=== PATIENT | female | born 1965 | race Caucasian/White ===

== ENCOUNTER → 2017-07-22 | Outpatient (CLI) | payer OTHER | END | disposition home or self-care (01) | LOC: CFH 11:48 | PROVIDERS: ATTEND Obstetrics & Gynecology | DX: Z12.31 Encounter for screening mammogram for malignant neoplasm of breast (principal) | CPT/HCPCS: 77063; 77067 ==

== ENCOUNTER → 2018-05-30 | Outpatient (CLI) | payer OTHER ==
[~2018-05-30] MED LIST: ATOR20TA37 PO; CHOL100012 PO; IBUP100T6 PO; INSU100I17 SQ; INSU300I3 SL; LEVO137T2 PO; LISI-170 PO; OMEG1CAP23 PO; [UNRECOGNIZED DRUG - CODE] PO
[2018-05-30 11:03] LABS: BASOPHILS # (AUTO) 0.01 x10^3/uL (0-0.1); BASOPHILS % (AUTO) 0 % (0-1); EOSINOPHILS # (AUTO) 0.16 x10^3/uL (0-0.4); EOSINOPHILS % (AUTO) 1 % (1-7); LYMPHOCYTES # (AUTO) 2.13 x10^3/uL (1-3.4); LYMPHOCYTES % (AUTO) 16 % (22-44); MD NO; MEAN CORPUSCULAR HEMOGLOBIN 30.7 pg (27.0-34.8); MEAN CORPUSCULAR HGB CONC 33.7 g/dL (32.4-35.8); MEAN CORPUSCULAR VOLUME 91.1 fL (80-100); MEAN PLATELET VOLUME 7.9 fL (7.4-10.4); MONOCYTES # (AUTO) 0.51 x10^3/uL (0.2-0.8); MONOCYTES % (AUTO) 4 % (2-9); NEUTROPHILS # (AUTO) 10.72 x10^3/uL (1.8-6.8); NEUTROPHILS % (AUTO) 79 % (42-75); PLATELET COUNT 401 x10^3/uL (130-400); RED BLOOD COUNT 4.35 x10^6/uL (3.82-5.3)
[2018-05-30 11:12] LABS: CULTURE INDICATED? YES; MICROSCOPIC INDICATED
[2018-05-30 11:14] LABS: ALBUMIN 3.3 g/dL (3.4-5.0); ANION GAP 7 mmol/L (5-15); CHLORIDE 109 mmol/L (98-107)
[2018-05-30 11:20] LABS: ALANINE AMINOTRANSFERASE 13 U/L (12-78); ALKALINE PHOSPHATASE 44 U/L (45-117); BILIRUBIN,TOTAL 0.3 mg/dL (0.2-1.0); CREATININE 0.85 mg/dL (0.55-1.02)
== END | disposition home or self-care (01) ==
LOC: STAR 09:59
PROVIDERS: ATTEND Obstetrics & Gynecology
DX: Z01.818 Encounter for other preprocedural examination (principal); N94.6 Dysmenorrhea, unspecified; N85.7 Hematometra; M48.02 Spinal stenosis, cervical region
CPT/HCPCS: 36415; 71046; 80053; 81001; 84702; 85025; 87086; 93005

== ENCOUNTER 2018-06-03 09:25 | Inpatient (IN) | payer OTHER ==
[~2018-06-03] VITALS: Ht 160 cm; Wt 82.0 kg
[2018-06-03] MEDS ORDERED: LACTATED RINGERS 1,000 ML IV SCH (09:57)
[2018-06-03] MEDS ORDERED: ACETAMINOPHEN 500 MG TABLET PO ONE (10:00)
[2018-06-03] MEDS ORDERED: GABAPENTIN 300 MG CAPSULE PO ONE (10:00)
[2018-06-03 10:22] VITALS: BP 151/88
[2018-06-03] MEDS ORDERED: FENTANYL PF 250 MCG/5ML ONE (11:18)
[2018-06-03] MEDS ORDERED: LABETALOL 5MG/ML, 20ML IV PRN (11:30)
[2018-06-03] MEDS ORDERED: DIPHENHYDRAMINE 50 MG/ML, 1ML IVPush PRN (11:30)
[2018-06-03] MEDS ORDERED: PROCHLORPERAZINE 5 MG/ML, 2ML IV PRN (11:30)
[2018-06-03] MEDS ORDERED: HALOPERIDOL 5 MG/ML IV PRN (11:30)
[2018-06-03] MEDS ORDERED: MEPERIDINE/PF 25MG/0.5ML IVPush PRN (11:30)
[2018-06-03] MEDS ORDERED: hydrALAzine 20 MG/ML, 1ML IV PRN (11:30)
[2018-06-03] MEDS ORDERED: METOPROLOL 1 MG/ML, 5ML IV PRN (11:30)
[2018-06-03] MEDS ORDERED: PROMETHAZINE 25 MG/ML, 1ML IV PRN (11:30)
[2018-06-03] MEDS ORDERED: OXYcodone 5 MG/5 ML ORAL.SOL UDC PO PRN (11:30)
[2018-06-03] MEDS ORDERED: EPINEPHRINE 1 MG/ML, 1ML ONE (12:07)
[2018-06-03] MEDS ORDERED: BUPIVACAINE/PF 0.25% ONE (12:07)
[2018-06-03] MEDS ORDERED: FLUORESCEIN SODIUM 500 MG/5 ML ONE (12:07)
[2018-06-03] MEDS ORDERED: SUCCINYLCHOLINE 20 MG/ML, 10ML ONE (13:52)
[2018-06-03] MEDS ORDERED: ONDANSETRON 2MG/ML, 2ML ONE (13:52)
[2018-06-03] MEDS ORDERED: CEFAZOLIN 1,000 MG ONE (13:52)
[2018-06-03] MEDS ORDERED: NEOSTIGMINE 1 MG/ML, 10ML ONE (13:52)
[2018-06-03] MEDS ORDERED: PROPOFOL 10 MG/ML, 20ML ONE (13:52)
[2018-06-03] MEDS ORDERED: ROCURONIUM 10MG/ML,5ML ONE (13:52)
[2018-06-03] MEDS ORDERED: GLYCOPYRROLATE 0.2MG/1ML, 5ML ONE (13:52)
[2018-06-03] MEDS ORDERED: FENTANYL PF 100 MCG/2ML ONE ×2 (14:38→15:12)
[2018-06-03] MEDS ORDERED: OXYcodone 5 MG/5 ML ORAL.SOL UDC ONE (15:12)
[2018-06-03] MEDS: FENTANYL PF 100 MCG/2ML IV PRN ×3 (15:18→15:48)
[2018-06-03] MEDS ORDERED: HYDROmorphone 1 MG/ML, 1ML ONE ×2 (15:31→15:51)
[2018-06-03] MEDS: HYDROmorphone 2 MG/ML, 1ML IVPush PRN ×5 (15:33→16:01)
[2018-06-03] MEDS ORDERED: PROCHLORPERAZINE 5 MG/ML, 2ML ONE (15:35)
[2018-06-03] MEDS: NOVOLOG MIX MC SCH (17:00)
[2018-06-03] MEDS: LACTATED RINGERS 1,000 ML IV SCH (17:00)
[2018-06-03 18:51] VITALS: BP 126/76
[2018-06-03] MEDS: HYDROmorphone 2 MG/ML, 1ML IV PRN ×2 (19:51→23:09)
[2018-06-03] MEDS: ATORVASTATIN 20 MG TABLET PO SCH (19:52)
[2018-06-03] MEDS: IBUPROFEN 600 MG TABLET PO SCH (19:52)
[2018-06-03] MEDS ORDERED: KETOROLAC 30 MG/1 ML IV PRN (20:00)
[2018-06-03] MEDS ORDERED: ONDANSETRON 2MG/ML, 2ML IV PRN (20:00)
[2018-06-03] MEDS: OXYcodone/APAP 5/325MG TABLET PO PRN (20:55)
[2018-06-03] MEDS: SODIUM CHLORIDE FLUSH 10ML SYR IVF SCH (23:10)
[2018-06-04] MEDS: NOVOLOG MIX MC SCH ×3 (01:00→16:46)
[2018-06-04] MEDS: LACTATED RINGERS 1,000 ML IV SCH ×4 (01:00→20:08)
[2018-06-04 01:34] VITALS: BP 109/68
[2018-06-04] MEDS: OXYcodone/APAP 5/325MG TABLET PO PRN ×5 (01:56→21:56)
[2018-06-04] MEDS: IBUPROFEN 600 MG TABLET PO SCH ×4 (05:34→20:08)
[2018-06-04] MEDS: LEVOTHYROXINE 137 MCG TABLET PO SCH (05:34)
[2018-06-04 06:43] VITALS: BP 90/55
[2018-06-04] MEDS: LISINOPRIL 20 MG TABLET PO SCH (08:03)
[2018-06-04] MEDS: SODIUM CHLORIDE FLUSH 10ML SYR IVF SCH ×2 (08:03→20:08)
[2018-06-04 12:44] VITALS: BP 104/54
[2018-06-04 19:35] VITALS: BP 100/50
[2018-06-04] MEDS: ATORVASTATIN 20 MG TABLET PO SCH (20:08)
[2018-06-05] MEDS: NOVOLOG MIX MC SCH ×2 (01:00→09:00)
[2018-06-05 03:05] VITALS: BP 106/62
[2018-06-05] MEDS: IBUPROFEN 600 MG TABLET PO SCH (05:26)
[2018-06-05] MEDS: LEVOTHYROXINE 137 MCG TABLET PO SCH (05:26)
[2018-06-05 06:36] VITALS: BP 116/71
[2018-06-05] MEDS: LISINOPRIL 20 MG TABLET PO SCH (08:20)
[2018-06-05] MEDS: LACTATED RINGERS 1,000 ML IV SCH (09:00)
[2018-06-05] MEDS: SODIUM CHLORIDE FLUSH 10ML SYR IVF SCH (09:00)
[2018-06-05] MEDS ORDERED: OXYC-302 PO (09:32)
== END 2018-06-05 09:44 | disposition home or self-care (01) | DRG 742 ==
LOC: OUT 09:25 → 4NOR 16:31 → OUT 16:36 → 4NOR 16:36 → DCLOUNGE 06-05 09:32
PROVIDERS: ADMIT Obstetrics & Gynecology; ATTEND Obstetrics & Gynecology
PROC: 0UT10ZZ Resection of Left Ovary, Open Approach (ICD-10-PCS; 2018-06-03)
PROC: 0UT90ZZ Resection of Uterus, Open Approach (ICD-10-PCS; 2018-06-03)
PROC: 0UJD4ZZ Inspection of Uterus and Cervix, Percutaneous Endoscopic Approach (ICD-10-PCS; 2018-06-03)
PROC: 0DNU0ZZ Release Omentum, Open Approach (ICD-10-PCS; 2018-06-03)
PROC: 0UT70ZZ Resection of Bilateral Fallopian Tubes, Open Approach (ICD-10-PCS; principal; 2018-06-03 11:30)
DX: N88.2 Stricture and stenosis of cervix uteri (principal); R71.0 Precipitous drop in hematocrit; E44.1 Mild protein-calorie malnutrition; N83.6 Hematosalpinx; N73.6 Female pelvic peritoneal adhesions (postinfective); E10.9 Type 1 diabetes mellitus without complications; G89.29 Other chronic pain; I10 Essential (primary) hypertension; E03.9 Hypothyroidism, unspecified; E78.5 Hyperlipidemia, unspecified; N94.6 Dysmenorrhea, unspecified; Z90.49 Acquired absence of other specified parts of digestive tract; Z82.49 Family history of ischemic heart disease and other diseases of the circulatory system; Z53.31 Laparoscopic surgical procedure converted to open procedure
CPT/HCPCS: 36415; J3490; 82962; 85014; 85018; 86850; 86900; 88307; G0378; J0171; J0690; J1170; J2405; J2704; J2710; J3010; J0330; J0780; J7120

== ENCOUNTER 2018-08-04 13:33 | Outpatient (CLI) | payer OTHER ==
[~2018-08-04 13:33] MED LIST changes: +OXYC-302 PO
== END 2018-08-04 23:59 | disposition home or self-care (01) ==
LOC: CFH 13:33
PROVIDERS: ATTEND Family Medicine
DX: Z12.31 Encounter for screening mammogram for malignant neoplasm of breast (principal)
CPT/HCPCS: 77063; 77067